=== PATIENT | female | born 1955 | race Asian ===

== ENCOUNTER 2019-04-12 06:47 | Day surgery (SDC) | payer BC ==
[2019-04-12] MEDS ORDERED: LIDOCAINE 1% (MDV) 20 ML INJ (08:59)
[2019-04-12] MEDS ORDERED: FENTAnyl 50 MCG/ML VIAL (08:59)
[2019-04-12] MEDS ORDERED: ETOMIDATE 20 MG INJ (08:59)
[2019-04-12] MEDS ORDERED: PROPOFOL 200 MG INJ (09:00)
== END 2019-04-12 12:32 | disposition home or self-care (01) ==
LOC: GIL 06:47
DX: D50.9 Iron deficiency anemia, unspecified (principal); K62.3 Rectal prolapse; K44.9 Diaphragmatic hernia without obstruction or gangrene; K21.0 Gastro-esophageal reflux disease with esophagitis; K29.30 Chronic superficial gastritis without bleeding
CPT/HCPCS: 43239; 88305; 88312